=== PATIENT | female | born 1950 ===

== ENCOUNTER 2018-11-06 07:19 | Outpatient (CLI) | payer OTHER ==
[~2018-11-06] VITALS: Ht 152.4 cm; Wt 61.2 kg
== END 2018-11-06 07:35 | disposition home or self-care (01) ==
LOC: OFIC 805 07:19
DX: H74.13 Adhesive middle ear disease, bilateral (principal); H70.13 Chronic mastoiditis, bilateral; H90.71 Mixed conductive and sensorineural hearing loss, unilateral, right ear, with unrestricted hearing on the contralateral side; H61.23 Impacted cerumen, bilateral; H69.83 Other specified disorders of Eustachian tube, bilateral

== ENCOUNTER 2019-11-23 09:24 | Outpatient (CLI) | payer OTHER ==
[2019-11-23] MEDS ORDERED: CIPRODEX OTIC7.5 ML OT (13:24)
== END 2019-11-23 13:00 | disposition home or self-care (01) ==
LOC: OFIC 805 09:24
DX: H90.6 Mixed conductive and sensorineural hearing loss, bilateral (principal); H70.13 Chronic mastoiditis, bilateral; H69.83 Other specified disorders of Eustachian tube, bilateral; H74.12 Adhesive left middle ear disease

== ENCOUNTER 2020-04-06 10:58 | Outpatient (CLI) | payer OTHER ==
[~2020-04-06] VITALS: Ht 152.4 cm; Wt 61.7 kg
[~2020-04-06 10:58] MED LIST: CIPRODEX OTIC7.5 ML OT
== END 2020-04-06 16:35 | disposition home or self-care (01) ==
LOC: OFIC 805 10:58
PROVIDERS: ATTEND Otolaryngology
DX: H90.6 Mixed conductive and sensorineural hearing loss, bilateral (principal); H70.13 Chronic mastoiditis, bilateral; H61.23 Impacted cerumen, bilateral; H69.83 Other specified disorders of Eustachian tube, bilateral

== ENCOUNTER → 2020-08-11 | Outpatient (CLI) | payer OTHER | END | disposition home or self-care (01) | LOC: OFIC 805 11:15 | PROVIDERS: ATTEND Otolaryngology | DX: H90.6 Mixed conductive and sensorineural hearing loss, bilateral (principal); H70.13 Chronic mastoiditis, bilateral; H74.12 Adhesive left middle ear disease; H69.81 Other specified disorders of Eustachian tube, right ear; H61.891 Other specified disorders of right external ear; H61.21 Impacted cerumen, right ear ==